=== PATIENT | male | born 1990 | race Caucasian/White ===

== ENCOUNTER 2020-06-06 01:00 | Emergency (ER) | payer OTHER ==
[~2020-06-06] VITALS: Ht 172.7 cm; Wt 68.0 kg
--- NOTE | 2020-06-06 01:02 | NUR ---
pt bibself c/o sore throat x3 days. pt [id number] breathing evenly and unlabored. Pt skin warm, dry, and intact. Pt attached to monitor and pox. Call light within reach.
--- NOTE | 2020-06-06 01:48 | NUR ---
rapid influenza and covid swab sent to lab
--- NOTE | 2020-06-06 01:50 | NUR ---
CALLED LAB FOR MONO TEST DRAW
--- NOTE | 2020-06-06 02:06 | NUR ---
strep swab sent to lab
--- NOTE | 2020-06-06 02:10 | NUR ---
CALLED LAB FOR MONO TEST DRAW
--- NOTE | 2020-06-06 02:15 | NUR ---
pt denied mono blood draw
--- NOTE | 2020-06-06 02:48 | NUR ---
per lab covid and flu negative
[2020-06-06] MEDS ORDERED: PENI500T PO (03:04)
--- NOTE | 2020-06-06 03:04 | NUR ---
Patient discharged to home in stable condition. Written and verbal after care instructions given. Patient verbalizes understanding of instruction. Pt ambulatory with a steady gait
[2020-06-06 03:12] VITALS: BP 118/89
== END 2020-06-06 03:04 | disposition home or self-care (01) ==
LOC: ER 01:05
DX: J02.0 Streptococcal pharyngitis (principal); R50.9 Fever, unspecified; Z20.822 Contact with and (suspected) exposure to COVID-19
CPT/HCPCS: 87426; 87804; 87880; 99283; C9803; 86403-TC